=== PATIENT | male | born 1995 | race Caucasian/White ===

== ENCOUNTER 2023-09-18 11:14 | Emergency (ER) | payer OTHER, SELFPAY ==
[2023-09-18 11:22] VITALS: BP 129/72; PULSE 80; RESP 20; TEMP 37; O2SAT 100
--- NOTE | 2023-09-18 11:55 | ED.GENADULT ---
HPI - General Adult General Chief complaint: Upper Respiratory Infection Stated complaint: Congestion/Swollen Lip Time Seen by Provider: 09/18/23 11:35 Source: patient, RN notes reviewed and old records reviewed Mode of arrival: ambulatory Limitations: no limitations History of Present Illness HPI narrative: 28-year-old male to Express Care for complaint redness and swelling to left upper lip for 1 day. Patient states that he 1st noticed yesterday and thought it was an ingrown hair and attempted to remove it. patient reports significant increase in pain and swelling overnight. patient states that his fiancee is in the medical field and tested positive for COVID yesterday. Patient requesting being screened for COVID during visit today. Patient denies drainage, allergies, cough, difficulty swallowing, oral swelling, pertinent medical history, fever, nausea, headache. Patient able to tolerate fluids by mouth. respirations even and nonlabored. Patient in no acute distress. Related Data Allergies Allergy/AdvReac Type Severity Reaction Status Date / Time No Known Allergies Allergy Verified 09/18/23 11:48 Review of Systems Review of Systems: All systems reviewed & are unremarkable except as noted in HPI and below Constitutional: Constitutional: Reports no additional constitutional complaints Eyes: Eyes: Reports no additional eye complaints ENT: Reports as per HPI and Reports lip swelling ( Left upper) Cardiovascular: Cardiovascular: Reports no additional cardiovascular complaints, Denies chest pain and Denies dyspnea Respiratory: Respiratory: Reports no additional respiratory complaints, Denies cough and Denies dyspnea Musculoskeletal: Musculoskeletal: Reports no additional musculoskeletal complaints Neurologic: Reports system reviewed and no additional complaints, except as documented Psychiatric: Psychiatric: Reports no additional psychiatric complaints PMFSH Comments At the time of my signature, I reviewed and agree with the nursing past medical, surgical, social, and family history. There is no relevant family history pertinent to the patient complaint. Exam Const: General: cooperative, healthy appearing, no acute distress, alert, uncomfortable and well nourished Nutritional Appearance: well nourished Orientation/consciousness: patient oriented x3 Limitations: no limitations HENMT: Head: normal to inspection Ears: external ears normal Face/Nose/Sinus: Normal external nose present, Normal nares present, normal facial exam, No erythema and No edema Face and sinus: normal facial exam, no erythema and no edema Mouth: Yes lip abnormal ( erythematous) left upper swelling Eyes: General: appearance normal, both eyes and all related structures Neck: Neck: normal visual inspection, full ROM and no meningeal signs Lymphatic: no lymphadenopathy noted and no lymphedema noted Chest: Chest palpation & inspection: normal inspection of the chest Resp: Effort & Inspection: normal respiratory effort and able to speak in complete sentences Auscultation: clear to auscultation bilaterally Cardio: Jugular venous distension: no JVD Rate: regular rate Rhythm: regular rhythm Back/Spine/Pelvis: Cervical Spine: cervical ROM normal Skin: General skin exam: normal color and wounds noted ( left upper lip erythematous, edematous, scant amount of purulent drainage ) Neuro: General: patient oriented x3, gait normal, moves all extremities and no meningeal signs Speech: normal speech Gait exam (Neuro): Normal gait present Extrem: General: normal to inspection, full ROM and capillary refill normal Psych: Appearance: grossly normal and well kempt Course Course Emergency Course: Some parts of this dictation were generated by voice recognition software and may contain typographical and/or grammatical inaccuracies. Level of Care: Express Care Visit Vital Signs Vital signs: Vital Signs Temperature 37.0 C 09/18/23 11:22 Pu
== END 2023-09-18 12:08 | disposition home or self-care (01) ==
PROVIDERS: Emergency Provider Nurse Practitioner Family
DX: L73.1 Pseudofolliculitis barbae (principal); Z20.822 Contact with and (suspected) exposure to COVID-19
CPT/HCPCS: 87426; 99203; G0463

== ENCOUNTER 2024-04-08 08:36 | Emergency (ER) | payer OTHER, SELFPAY ==
[2024-04-08 08:42] VITALS: BP 133/69; PULSE 85; RESP 20; TEMP 36.7; O2SAT 98
--- NOTE | 2024-04-08 08:58 | ED.URI ---
HPI - URI/Sore Throat General Chief Complaint: Upper Respiratory Infection Stated Complaint: left shoulder pain Time Seen by Provider: 04/08/24 08:58 Source: patient Mode of arrival: ambulatory Limitations: no limitations History of Present Illness HPI Narrative: 28 y/o male presented for c/o left chest and shoulder pain with movement. Onset 4 days. Started while in a crawl space pulling wires. Pain worse with pulling, coughing etc. Pt states he took ibuprofen and his sig other's muscle relaxer which did help. He did not take anything for pain yesterday because he wanted to gauge the pain without meds. States today he attempted to pull up his boot which caused more pain. Denies numbness, tingling or weakness, decreased ROM or bruising. 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 Related Data Allergies Allergy/AdvReac Type Severity Reaction Status Date / Time No Known Allergies Allergy Verified 09/18/23 11:48 Review of Systems Review of Systems: CONSTITUTIONAL: Denies body aches, fever, chills CARDIOVASCULAR: Denies chest pain, palpitations, or edema. RESPIRATORY: Denies cough or dyspnea. SKIN: Denies rash, itching, or wounds. MUSCULOSKELETAL: per HPI NEUROLOGIC: Denies headache, numbness, tingling, or weakness. All systems reviewed & are unremarkable except as noted in HPI and below PMFSH Comments At time of signature, I have reviewed and agree with nursing past medical, surgical, social and family history unless otherwise noted. Please see nursing chart for further information. There is no relevant family history pertinent to the presenting complaint Exam Narrative: GENERAL: Well-appearing NECK: Supple. full ROM CHEST: Speaks in full sentences. No respiratory distress. HEART: Regular rate and rhythm. Normal and equal peripheral pulses. EXTREMITIES: Left anterior chest tender with palpation. LUE has normal strength and sensation, normal range of motion at shoulder with some left anterior chest pain reported with movement. Nontender shoulder/scapula. No swelling or ecchymosis, No open wounds, or obvious deformity; alignment normal, pulse palpable and equal bilaterally, skin warm, dry, pink. Capillary refill less than 3 seconds. SKIN: Warm, dry, no rash. NEURO: Alert and oriented x3. PSYCH: Normal mood and affect Course Course Emergency Course: Patient is aware of diagnosis, understands and agrees to treatment plan. Anticipatory guidance given. Patient agrees to follow-up as directed and is aware of reasons to seek care at the emergency department. Portions of this record may have been created with voice recognition software Level of Care: Express Care Visit Vital Signs Vital signs: Vital Signs Temperature 98.1 F 04/08/24 08:42 Pulse Rate 85 04/08/24 08:42 Respiratory Rate 20 04/08/24 08:42 Blood Pressure 133/69 04/08/24 08:42 Pulse Oximetry 98 04/08/24 08:42 Oxygen Delivery Room Air 04/08/24 08:42 Temperature 98.1 F 04/08/24 09:00 Pulse Rate 72 04/08/24 09:00 Respiratory Rate 20 04/08/24 09:00 Blood Pressure 116/68 04/08/24 09:00 Pulse Oximetry 100 04/08/24 09:00 Oxygen Delivery Room Air 04/08/24 09:00 Reviewed MDM - URI/Sore Throat MDM Narrative Medical decision making narrative: Discussed physical exam findings and reviewed rx. States he has family hx addiction and avoids taking medicines, therefore declines prescription muscle relaxer at this time. Advised supportive measures and signs/symptoms to go to the ER. Pt is appropriate for outpt treatment and f/u. Differential Diagnosis Differential diagnosis: Likely other (Shoulder dislocation, clavicle fracture, humerus fracture, scapular fracture, acromioclavicular joint injury, rotator cuff tear, bicep tendon rupture, tricep tendon rupture) Discharge Plan Discharge Clinical Impression: Musculoskeletal chest pain Patient Disposition: Home, Self-Care Condition: Stable Instructions: Antibiotic Form, Chest Wall Pain (ED) Additional Instructions: Rest. Avoid pushing, pulling, lifting or anything that worsens the symptoms Tylenol 1000mg every 8 hours as needed Take the steroid as directed Alternate ice/heat to the site. Lidocaine or salon pas pain patch or use pain cream like icy/hot or biofreeze. Follow up with your primary care provider as needed in 1 week Go to the ER for worsening symptoms or concerns Patient Language: Icelandic Prescriptions: New prednisone 50 mg tablet 50 mg PO DAILY Qty: 5 0RF Follow-up/Referrals: Viktoriya Parikh RN [Primary Care Provider] - Stand Alone Forms: Work/School Release IP Time of Disposition: :09
[2024-04-08 09:00] VITALS: BP 116/68; PULSE 72; RESP 20; TEMP 36.7; O2SAT 100
== END 2024-04-08 09:23 | disposition home or self-care (01) ==
PROVIDERS: Emergency Provider Nurse Practitioner Family
DX: R07.89 Other chest pain (principal)
CPT/HCPCS: 99213; G0463